=== PATIENT | male | born 1945 | race American Indian/Alaskan Native ===

== ENCOUNTER 2017-01-18 14:00 | Inpatient (IN) | payer MEDICARE ==
[2017-01-18 17:30] VITALS: BMI 31.4
[2017-01-18] MEDS ORDERED: Magnesium Hydroxide Susp 30 ml UD PO PRN (17:43)
[2017-01-18] MEDS ORDERED: Piperacillin/Tazobact 3.375 gm Inj IVPB SCH (17:45)
--- NOTE | 2017-01-18 18:24 | CP.PCM.HP ---
History of Present Illness - History of Present Illness History of Present Illness: Chief complaint: Right ankle ulcer HPI: 71-year-old male with past medical history of hypertension recently discharged from [facility] for right ankle ulcer which was debrided 6 days ago and now has a wound VAC in place. 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 He saw his main line station engineer, Dr. Lisa who initially attempted conservative management, however when the ulcer worsened they opted for surgical intervention. He is in TCU for further IV antibio Zosyn and Cipro, with Dr. Bai on consult. To note patient does not have diabetes. Hemoglobin A1c was 6.2 and his sugars were well controlled throughout his admission [facility]. Review of systems per HPI, all other systems reviewed and negative by me Past medical and surgical history: Hypertension, and the same type of ulcer in the left medial aspect of his ankle a few years ago which was resolved with a skin graft Family history denies Social history denies tobacco or IV drug abuse, however admits to occasional alcohol use Medications as below No known drug allergies Vital signs as documented. Gen: WDWN, cooperative, alert HEENT: NCAT, PERRL, EOMI, no erythema, exudates, gross hearing intact, no lesions Neck: Soft, supple, no lymphadenopathy, no JVD Heart: +S1S2, RRR, No MRG Lung: CTAB, No WRR Abd: soft, NT, ND, BSx4, no HSM, no masses Ext: warm, well perfused, pedal pulses intact +WOUND VAC R ANKLE Neuro: AAOx3, Strength equal bilaterally UE/LE Skin: Warm, Dry, no rash Psych: Normal mood, affect with appropriate range Labs ordered for the morning, labs at [facility] reviewed Allergies No Known Allergies Allergy (Verified 01/18/17 17:27) Height & Weight Height 6 ft 1 in Weight 238 lb Start Date/Time Active Medications 01/18/17 17:42 Acetaminophen [Tylenol 325mg tab] 650 mg PO Q6 PRN oxyCODONE/Acetaminophen [Percocet 5/325 mg Tab] 1 tab PO Q6H PRN 01/18/17 17:43 Docusate [Colace] 100 mg PO BID PRN Magnesium Hydroxide [Milk Of Magnesia] 30 ml PO HS PRN 07/25/17 17:45 Ciprofloxacin [Cipro] 500 mg PO BID Piperacillin/Tazobact [Zosyn] 3.375 gm IVPB Q8H 01/19/17 09:00 Enoxaparin [Lovenox] 40 mg SC DAILY Losartan [Cozaar] 100 mg PO DAILY amLODIPine [Norvasc] 10 mg PO DAILY hydrALAZINE [Apresoline] 50 mg PO DAILY 71-year-old male with past medical history of hypertension recently discharged from [facility] for right ankle ulcer which was debrided 6 days ago and now has a wound VAC in place. 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 He saw his main line station engineer, Dr. Lisa who initially attempted conservative management, however when the ulcer worsened they opted for surgical intervention. He is in TCU for further IV antibio Zosyn and Cipro, with Dr. Bai on consult. To note patient does not have diabetes. Hemoglobin A1c was 6.2 and his sugars were well controlled throughout his admission [facility]. Right ankle ulcer Patient is status post debridement and wound vac placement [address] Bai appreciated and followed Continue Cipro 500 mg PO BID Continue Zosyn monitor labs Percocet for pain control Awaiting Podiatry Resident for confirmation on who to consult for Podiatry attending, uncertain if Dr. Lisa comes to [facility] Hypertension stable continue amlodipine, cozaar, hydralazine DVT prophylaxis Lovenox Present on Admission - Present on Admission Any Indicators Present on Admission: No Past Patient History - Past Medical History & Family History Past Medical History?: No - Past Social History Smoking Status: Never Smoked - CARDIAC Hx Hypertension: Yes - INTEGUMENTARY Hx Dermatological Problems: Yes Other/Comment: wound left heel for debridement - MUSCULOSKELETAL/RHEUMATOLOGICAL Hx Falls: No - PSYCHIATRIC Hx Substance Use: No - SURGICAL HISTORY Hx Surgeries: Yes Other/Comment: removal mole from left forearm 20 years ago - ANESTHESIA Hx Anesthesia: Yes Hx Anesthesia Reactions: No Hx Malignant Hyperthermia: No Meds Allergies/Adverse Reactions: Allergies Allergy/AdvReac Type Severity Reaction Status Date / Time No Known Allergies Allergy Verified 01/18/17 17:27
[2017-01-18] MEDS ORDERED: Piperacill/Tazo 3.375gm in Dex 3.375 GM/50 ML BAG IVPB SCH ×2 (19:00→19:15)
[2017-01-18] MEDS: Piperacill/Tazo 3.375gm in Dex 3.375 GM/50 ML BAG IVPB SCH (20:45)
[2017-01-19 07:00] LABS: HEMOGLOBIN 14.4 g/dL (12.0-18.0); MEAN CELL VOLUME 83.6 fl (80.0-94.0); MEAN CORPUSCULAR HEMOGLOBIN 27.8 pg (27.0-31.0); MEAN CORPUSCULAR HGB CONC 33.2 g/dL (33.0-37.0); RBC 5.17 Mil/uL (4.40-5.90); RED CELL DISTRIBUTION WIDTH 14.1 % (11.5-14.5); WHITE BLOOD COUNT 7.4 K/uL (4.8-10.8)
[2017-01-19 07:18] LABS: CALCIUM 9.7 mg/dL (8.4-10.2)
--- NOTE | 2017-01-19 08:58 | CP.PCM.CON ---
History of Present Illness - History of Present Illness History of Present Illness: 71 year old male patient seen at bedside 7 days s/p right ankle wound debridement. Patient was transferred from [facility] and is known to podiatry service. Patient seen resting in bed comfortably, AAOx3 and NAD. Patient denies any acute events overnight. Patient reports continued mild throbbing pain to his right ankle at night due to the WoundVAC, well managed by pain medications. Patient denies N/V/F/D/C/SOB/calf pain. No other pedal complaints at this time. PMH: DM, HTN PSH: wound debridement R posterior ankle via Versajet, removal of mole from L forearm FH: unknown SH: unknown Meds: see med list All: NKDA Review of Systems - Review of Systems All systems: reviewed and no additional remarkable complaints except (as per HPI ) Past Patient History - Past Medical History & Family History Past Medical History?: No - Past Social History Smoking Status: Former Smoker - CARDIAC Hx Hypertension: Yes - INTEGUMENTARY Hx Dermatological Problems: Yes Other/Comment: wound left heel for debridement. R ankle ulcer - MUSCULOSKELETAL/RHEUMATOLOGICAL Hx Falls: No - PSYCHIATRIC Hx Substance Use: No - SURGICAL HISTORY Hx Surgeries: Yes Other/Comment: removal mole from left forearm 20 years ago - ANESTHESIA Hx Anesthesia: Yes Hx Anesthesia Reactions: No Hx Malignant Hyperthermia: No Meds Allergies/Adverse Reactions: Allergies Allergy/AdvReac Type Severity Reaction Status Date / Time No Known Allergies Allergy Verified 01/18/17 17:27 - Medications Medications: Current Medications Acetaminophen (Tylenol 325mg Tab) 650 mg PO Q6 PRN PRN Reason: Pain, Mild (1-3) Last Admin: 01/18/17 21:59 Dose: 650 mg Amlodipine Besylate (Norvasc) 10 mg PO DAILY [facility] Ciprofloxacin (Cipro) 500 mg PO BID [facility] Last Admin: 01/18/17 21:59 Dose: 500 mg Docusate Sodium (Colace) 100 mg PO BID PRN PRN Reason: Constipation Enoxaparin Sodium (Lovenox) 40 mg SC DAILY [facility] PRN Reason: Protocol Hydralazine HCl (Apresoline) 50 mg PO DAILY [facility] Piperacillin Sod/Tazobactam Sod (Zosyn 3.375 Gm Iv Premix) 3.375 gm in 50 mls @ 50 mls/hr IVPB Q8@0400,1200,2000 [facility] Last Admin: 01/18/17 20:45 Dose: 50 mls/hr Losartan Potassium (Cozaar) 100 mg PO DAILY [facility] Magnesium Hydroxide (Milk Of Magnesia) 30 ml PO HS PRN PRN Reason: If No Bowel Movement in 3 Days Oxycodone/Acetaminophen (Percocet 5/325 Mg Tab) 1 tab PO Q6H PRN PRN Reason: Pain, severe (8-10) Stop: 01/21/17 17:43 Physical Exam - Constitutional Appears: Well, Non-toxic, No Acute Distress - Extremities Exam Additional comments: RLE focused physical exam: Vasc: DP and PT pulses palpable 2/4. CFT <3 seconds to digits x5. TG WNL. Neuro: Gross sensation intact. Derm: WoundVAC appears clean, dry, and intact with no leakage. No open lesions noted. Ortho: No tenderness to palpation to RLE - Neurological Exam Neurological exam: Alert, Oriented x3 - Psychiatric Exam Psychiatric exam: Normal Affect, Normal Mood Results - Vital Signs Recent Vital Signs: Last Vital Signs Temp 97.7 F 01/19/17 08:12 Pulse 69 01/19/17 08:12 Resp 20 01/19/17 08:12 BP 170/98 H 01/19/17 08:12 Pulse Ox 98 01/19/17 08:12 - Labs Result Diagrams: 01/19/17 06:30 01/19/17 06:30 Labs: Laboratory Results - last 24 hr 01/19/17 01/19/17 06:30 06:30 WBC 7.4 RBC 5.17 Hgb 14.4 Hct 43.3 MCV 83.6 MCH 27.8 MCHC 33.2 RDW 14.1 Plt Count 242 Sodium 140 Potassium 4.4 Chloride 103 Carbon Dioxide 26 Anion Gap 15 BUN 20 Creatinine 1.6 H Est GFR ( Amer) 52 Est GFR (Non-Af Amer) 43 Random Glucose 102 Calcium 9.7 Assessment & Plan - Assessment and Plan (Free Text) Assessment: 71 y/o diabetic male seen at bedside 7 days s/p right ankle wound debridement ( DOS 01/12/17) Plan: Patient seen and evaluated at bedside. seen at bedside with attending Dr. Torres Charts, vitals, labs reviewed = afebrile, WBC WNL @ 7.4 Cont abx per medicine = Zosyn, Cipro Continue monitoring WoundVAC Plan to change WoundVAC every 3-4 days - next change this Tuesday, 01/21 Podiatry will continue to follow while in house.
--- NOTE | 2017-01-19 12:58 | CP.PCM.CON ---
History of Present Illness - History of Present Illness History of Present Illness: 71 year old male s/p right ankle wound debridement. c/s + staph MSSA PMH: DM, HTN PSH: wound debridement R posterior ankle via Versajet, removal of mole from L forearm FH: unknown SH: unknown Meds: see med list All: NKDA Review of Systems - Review of Systems All systems: reviewed and no additional remarkable complaints except - Constitutional Constitutional: absent: As Per HPI, Anorexia, Chills, Daytime Sleepiness, Excessive Sweating, Fatigue, Fever, Frequent Falls, Headache, Increased Appetite , Lethargy, Malaise, Night Sweats, Snoring, Sleep Apnea, Weight Gain, Weight Loss, Weakness, Other - EENT Eyes: absent: As Per HPI, Blind Spots, Blurred Vision, Change in Vision, Decreased Night Vision, Diplopia, Discharge, Dry Eye, Exophthalmos, Floaters, Irritation, Itchy Eyes, Loss of Peripheral Vision, Pain, Photophobia, Requires Corrective Lenses, Sees Flashes, Spots in Vision, Tunnel Vision, Other Visual Disturbances, Loss of Vision, Other Ears: absent: As Per HPI, Decreased Hearing, Ear Discharge, Ear Pain, Tinnitus, Abnormal Hearing, Disequilibrium, Dizziness, Other Nose/Mouth/Throat: absent: As Per HPI, Epistaxis, Nasal Congestion, Nasal Discharge, Nasal Obstruction, Nasal Trauma, Nose Pain, Post Nasal Drip, Sinus Pain, Sinus Pressure, Bleeding Gums, Change in Voice, Dental Pain, Dry Mouth, Dysphagia, Halitosis, Hoarsness, Lip Swelling, Mouth Lesions, Mouth Pain, Odynophagia, Sore Throat, Throat Swelling, Tongue Swelling, Facial Pain, Neck Pain, Neck Mass, Other - Cardiovascular Cardiovascular: absent: As Per HPI, Acrocyanosis, Chest Pain, Chest Pain at Rest , Chest Pain with Activity, Claudication, Diaphoresis, Dyspnea, Dyspnea on Exertion, Edema, Irregular Heart Rhythm, Pain Radiating to Arm/Neck/Jaw, Leg Edema, Leg Ulcers, Lightheadedness, Orthopnea, Palpitations, Paroxysmal Nocturnal Dyspnea, Pedal Edema, Radiating Pain, Rapid Heart Rate, Slow Heart Rate, Syncope, Other - Respiratory Respiratory: absent: As Per HPI, Cough, Dyspnea, Hemoptysis, Dyspnea on Exertion , Wheezing, Snoring, Stridor, Pain on Inspiration, Chest Congestion, Excessive Mucous Production, Change in Mucous Color, Pain with Coughing, Other - Gastrointestinal Gastrointestinal: absent: As Per HPI, Abdominal Pain, Belching, Bloating, Change in Bowel Habits, Change in Stool Character, Coffee Ground Emesis, Constipation, Cramping, Diarrhea, Dyspepsia, Dysphagia, Early Satiety, Excessive Flatus, Fecal Incontinence, Heartburn, Hematemesis, Hematochezia, Loose Stools, Melena, Nausea, Odynophagia, Temesmus, Vomiting, Other - Genitourinary Genitourinary: absent: As Per HPI, Change in Urinary Stream, Difficulty Urinating, Dysuria, Flank Pain, Hematuria, Pyuria, Nocturia, Urinary Incontinence, Urinary Frequency, Urinary Hesitance, Urinary Urgency, Voiding Freq/Small Amts, Freq UTI, Hx Renal/Bladder Calculi, Hx /Renal Surgery, Bladder Distension, Other - Musculoskeletal Musculoskeletal: absent: As Per HPI, Abnormal Gait, Arthralgias, Atrophy, Back Pain, Deformity, Joint Swelling, Limited Range of Motion, Loss of Height, Muscle Cramps, Muscle Weakness, Myalgias, Neck Pain, Numbness, Radiating Pain into Limb, Stiffness, Tingling, Other - Integumentary Integumentary: As Per HPI, Skin Pain, Wounds - Neurological Neurological: absent: As Per HPI, Abnormal Gait, Abnormal Hearing, Abnormal Movements, Abnormal Speech, Behavioral Changes, Burning Sensations, Confusion, Convulsions, Disequilibrium, Dizziness, Numbness, Focal Weakness, Frequent Falls , Headaches, Lack of Coordination, Loss of Vision, Memory Loss, Paresthesias, Radicular Pain, Restless Legs, Sensory Deficit, Syncope, Tingling, Tremor, Vertigo, Weakness, Other Visual Disturbances, Other - Psychiatric Psychiatric: absent: As Per HPI, Abnormal Sleep Pattern, Anhedonia, Anxiety, Auditory Hallucinations, Behavioral Changes, Change in Appetite, Change in Libido, Confusion, Depression, Difficulty Concentrating, Hallucinations, Homicidal Ideation, Hopelessness, Irritability, Memory Loss, Mood Swings, Panic Attacks, Paranoia, Suicidal Ideation, Visual Hallucinations, Tactile Hallucinations, Other - Endocrine Endocrine: absent: As Per HPI, Change in Body Appearance, Change in Libido, Cold Intolorance, Deepening of Voice, Excessive Sweating, Fatigue, Flushing, Heat Intolorance, Increase in Ring/Shoe/Hat Size, Palpitations, Polydipsia, Polyphagia, Polyuria, Other - Hematologic/Lymphatic Hematologic: absent: As Per HPI, Easy Bleeding, Easy Bruising, Lymphadenopathy, Other Past Patient History - Past Medical History & Family History Past Medical History?: No - Past Social History Smoking Status: Former Smoker - CARDIAC Hx Hypertension: Yes - INTEGUMENTARY Hx Dermatological Problems: Yes Other/Comment: wound left heel for debridement. R ankle ulcer - MUSCULOSKELETAL/RHEUMATOLOGICAL Hx Falls: No - PSYCHIATRIC Hx Substance Use: No - SURGICAL HISTORY Hx Surgeries: Yes Other/Comment: removal mole from left forearm 20 years ago - ANESTHESIA Hx Anesthesia: Yes Hx Anesthesia Reactions: No Hx Malignant Hyperthermia: No Meds Allergies/Adverse Reactions: Allergies Allergy/AdvReac Type Severity Reaction Status Date / Time No Known Allergies Allergy Verified 01/18/17 17:27 - Medications Medications: Current Medications Acetaminophen (Tylenol 325mg Tab) 650 mg PO Q6 PRN PRN Reason: Pain, Mild (1-3) Last Admin: 01/18/17 21:59 Dose: 650 mg Amlodipine Besylate (Norvasc) 10 mg PO DAILY [facility] Last Admin: 01/19/17 09:58 Dose: 10 mg Ciprofloxacin (Cipro) 500 mg PO BID [facility] Last Admin: 01/19/17 09:57 Dose: 500 mg Docusate Sodium (Colace) 100 mg PO BID PRN PRN Reason: Constipation Enoxaparin Sodium (Lovenox) 40 mg SC DAILY [facility] PRN Reason: Protocol Hydralazine HCl (Apresoline) 50 mg PO DAILY [facility] Last Admin: 01/19/17 09:57 Dose: 50 mg Piperacillin Sod/Tazobactam Sod (Zosyn 3.375 Gm Iv Premix) 3.375 gm in 50 mls @ 50 mls/hr IVPB Q8@0400,1200,2000 [facility] Last Admin: 01/18/17 20:45 Dose: 50 mls/hr Losartan Potassium (Cozaar) 100 mg PO DAILY [facility] Last Admin: 01/19/17 09:58 Dose: 100 mg Magnesium Hydroxide (Milk Of Magnesia) 30 ml PO HS PRN PRN Reason: If No Bowel Movement in 3 Days Oxycodone/Acetaminophen (Percocet 5/325 Mg Tab) 1 tab PO Q6H PRN PRN Reason: Pain, severe (8-10) Stop: 01/21/17 17:43 Physical Exam - Constitutional Appears: Non-toxic, Chronically Ill - Head Exam Head Exam: NORMOCEPHALIC - Eye Exam Eye Exam: PERRL. absent: Scleral icterus - ENT Exam ENT Exam: Mucous Membranes Dry, Normal External Ear Exam - Neck Exam Neck exam: Negative for: Lymphadenopathy - Respiratory Exam Respiratory Exam: Decreased Breath Sounds - Cardiovascular Exam Cardiovascular Exam: REGULAR RHYTHM - GI/Abdominal Exam GI & Abdominal Exam: Diminished Bowel Sounds, Soft. absent: Tenderness - Rectal Exam Rectal Exam: Deferred - Exam Exam: NORMAL INSPECTION - Extremities Exam Extremities exam: Positive for: pedal edema, tenderness, pedal pulses present. Negative for: calf tenderness - Back Exam Back exam: absent: CVA tenderness (L), CVA tenderness (R) - Neurological Exam Neurological exam: Alert, CN II-XII Intact, Oriented x3, Reflexes Normal - Psychiatric Exam Psychiatric exam: Normal Mood Results - Vital Signs Recent Vital Signs: Last Vital Signs Temp 97.7 F 01/19/17 08:12 Pulse 69 01/19/17 09:58 Resp 20 01/19/17 08:12 BP 170/98 H 01/19/17 09:58 Pulse Ox 98 01/19/17 08:12 - Labs Result Diagrams: 01/19/17 06:30 01/19/17 06:30 Labs: Laboratory Results - last 24 hr 01/19/17 01/19/17 06:30 06:30 WBC 7.4 RBC 5.17 Hgb 14.4 Hct 43.3 MCV 83.6 MCH 27.8 MCHC 33.2 RDW 14.1 Plt Count 242 Sodium 140 Potassium 4.4 Chloride 103 Carbon Dioxide 26 Anion Gap 15 BUN 20 Creatinine 1.6 H Est GFR ( Amer) 52 Est GFR (Non-Af Amer) 43 Random Glucose 102 Calcium 9.7 Assessment & Plan - Assessment and Plan (Free Text) Assessment: s/p i and d right ankle ulcer cont iv rx and wound care
[2017-01-19] MEDS: Enoxaparin 40 mg Syringe SC SCH (13:30)
[2017-01-19] MEDS: Piperacill/Tazo 3.375gm in Dex 3.375 GM/50 ML BAG IVPB SCH ×2 (14:18→21:05)
[2017-01-19] MEDS: Oxycodone/Acetaminophen 5/325 mg Tab PO PRN (21:05)
[2017-01-20] MEDS: Piperacill/Tazo 3.375gm in Dex 3.375 GM/50 ML BAG IVPB SCH ×3 (04:37→21:05)
[2017-01-20] MEDS: Enoxaparin 40 mg Syringe SC SCH (08:23)
--- NOTE | 2017-01-20 09:25 | CP.PCM.PN ---
Subjective - Date & Time of Evaluation Date of Evaluation: 01/20/17 Time of Evaluation: 08:30 - Subjective Subjective: 71 year old male patient seen at bedside 8 days s/p right ankle wound debridement. Patient seen resting in bed comfortably, AAOx3 and NAD. Patient denies any acute events overnight. Patient reports continued mild throbbing pain to his right ankle at night due to the WoundVAC, well managed by Tylenol. Patient denies N/V/F/D/C/SOB/calf pain. No other pedal complaints at this time. Objective - Vital Signs/Intake and Output Vital Signs (last 24 hours): Temp Pulse Resp BP Pulse Ox 98.2 F 70 20 150/92 H 98 01/20/17 08:52 01/20/17 08:52 01/20/17 08:52 01/20/17 08:52 01/20/17 08:52 - Medications Medications: Current Medications Acetaminophen (Tylenol 325mg Tab) 650 mg PO Q6 PRN PRN Reason: Pain, Mild (1-3) Last Admin: 01/18/17 21:59 Dose: 650 mg Amlodipine Besylate (Norvasc) 10 mg PO DAILY [facility] Last Admin: 01/20/17 08:23 Dose: 10 mg Ciprofloxacin (Cipro) 500 mg PO BID [facility] Last Admin: 01/20/17 08:18 Dose: 500 mg Docusate Sodium (Colace) 100 mg PO BID PRN PRN Reason: Constipation Last Admin: 01/20/17 08:18 Dose: 100 mg Enoxaparin Sodium (Lovenox) 40 mg SC DAILY [facility] PRN Reason: Protocol Last Admin: 01/20/17 08:23 Dose: 40 mg Hydralazine HCl (Apresoline) 50 mg PO DAILY [facility] Last Admin: 01/20/17 08:24 Dose: 50 mg Piperacillin Sod/Tazobactam Sod (Zosyn 3.375 Gm Iv Premix) 3.375 gm in 50 mls @ 50 mls/hr IVPB Q8@0400,1200,2000 [facility] Last Admin: 01/20/17 04:37 Dose: 50 mls/hr Losartan Potassium (Cozaar) 100 mg PO DAILY [facility] Last Admin: 01/20/17 08:27 Dose: 100 mg Magnesium Hydroxide (Milk Of Magnesia) 30 ml PO HS PRN PRN Reason: If No Bowel Movement in 3 Days Oxycodone/Acetaminophen (Percocet 5/325 Mg Tab) 1 tab PO Q6H PRN PRN Reason: Pain, severe (8-10) Stop: 01/21/17 17:43 Last Admin: 01/19/17 21:05 Dose: 1 tab - Labs Labs: 01/19/17 06:30 01/19/17 06:30 - Constitutional Appears: Well, Non-toxic, No Acute Distress - Extremities Exam Additional comments: RLE focused physical exam: Vasc: DP and PT pulses palpable 2/4. CFT <3 seconds to digits x5. TG WNL. Neuro: Gross sensation intact. Derm: WoundVAC appears clean, dry, and intact with no leakage. No open lesions noted. Ortho: No tenderness to palpation to RLE - Neurological Exam Neurological Exam: Alert, Awake, Oriented x3 - Psychiatric Exam Psychiatric exam: Normal Affect, Normal Mood Assessment and Plan - Assessment and Plan (Free Text) Assessment: 71 y/o diabetic male seen at bedside 8 days s/p right ankle wound debridement ( DOS 01/12/17) Plan: Patient seen and evaluated at bedside. seen at bedside with attending Dr. Torres Charts, vitals, labs reviewed = afebrile Cont abx per ID = Zosyn, Cipro Continue monitoring WoundVAC Plan to change WoundVAC tomorrow, Tuesday, 01/21 Podiatry will continue to follow while in house.
[2017-01-20] MEDS: Oxycodone/Acetaminophen 5/325 mg Tab PO PRN ×2 (11:29→20:03)
--- NOTE | 2017-01-20 13:46 | CP.PCM.PN ---
Subjective - Date & Time of Evaluation Date of Evaluation: 01/20/17 Time of Evaluation: 13:45 - Subjective Subjective: Patient doing well, tolerating PT +wound vac cont abx HD stable NAD ID/PODIATRY consults appreciated Temp Pulse Resp BP Pulse Ox 98.2 F 70 20 150/92 H 98 01/20/17 08:52 01/20/17 08:52 01/20/17 08:52 01/20/17 08:52 01/20/17 08:52 Gen: WDWN, cooperative, alert HEENT: NCAT, PERRL, EOMI, no erythema, exudates, gross hearing intact, no lesions Neck: Soft, supple, no lymphadenopathy, no JVD Heart: +S1S2, RRR, No MRG Lung: CTAB, No WRR Abd: soft, NT, ND, BSx4, no HSM, no masses Ext: warm, well perfused, pedal pulses intact +WOUND VAC R ANKLE Neuro: AAOx3, Strength equal bilaterally UE/LE Skin: Warm, Dry, no rash Psych: Normal mood, affect with appropriate range 01/19/17 06:30 01/19/17 06:30 Active Medications 01/18/17 17:42 Acetaminophen [Tylenol 325mg tab] 650 mg PO Q6 PRN oxyCODONE/Acetaminophen [Percocet 5/325 mg Tab] 1 tab PO Q6H PRN 01/18/17 17:43 Docusate [Colace] 100 mg PO BID PRN Magnesium Hydroxide [Milk Of Magnesia] 30 ml PO HS PRN 01/18/17 17:45 Ciprofloxacin [Cipro] 500 mg PO BID 01/18/17 20:00 Piperacill/Tazo 3.375gm in Dex [Zosyn 3.375 Gm IV Premix] 3.375 gm in 50 ml IVPB Q8@0400,1200,199901/19/17 09:00 Enoxaparin [Lovenox] 40 mg SC DAILY Losartan [Cozaar] 100 mg PO DAILY amLODIPine [Norvasc] 10 mg PO DAILY hydrALAZINE [Apresoline] 50 mg PO DAILY 71-year-old male with past medical history of hypertension recently discharged from [facility] for right ankle ulcer which was debrided 6 days ago and now has a wound VAC in place. 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 He saw his paper maker, Dr. Lisa who initially attempted conservative management, however when the ulcer worsened they opted for surgical intervention. He is in TCU for further IV antibio Zosyn and Cipro, with Dr. Bai on consult. To note patient does not have diabetes. Hemoglobin A1c was 6.2 and his sugars were well controlled throughout his admission [facility]. Right ankle ulcer Patient is status post debridement and wound vac placement [address] Bai appreciated and followed Continue Cipro 500 mg PO BID Continue Zosyn monitor labs Percocet for pain control Awaiting Podiatry Resident for confirmation on who to consult for Podiatry attending, uncertain if Dr. Lisa comes to [facility] Hypertension stable continue amlodipine, cozaar, hydralazine DVT prophylaxis Lovenox Objective - Vital Signs/Intake and Output Vital Signs (last 24 hours): Temp Pulse Resp BP Pulse Ox 98.2 F 70 20 150/92 H 98 01/20/17 08:52 01/20/17 08:52 01/20/17 08:52 01/20/17 08:52 01/20/17 08:52 - Medications Medications: Current Medications Acetaminophen (Tylenol 325mg Tab) 650 mg PO Q6 PRN PRN Reason: Pain, Mild (1-3) Last Admin: 01/18/17 21:59 Dose: 650 mg Amlodipine Besylate (Norvasc) 10 mg PO DAILY [facility] Last Admin: 01/20/17 08:23 Dose: 10 mg Ciprofloxacin (Cipro) 500 mg PO BID [facility] Last Admin: 01/20/17 08:18 Dose: 500 mg Docusate Sodium (Colace) 100 mg PO BID PRN PRN Reason: Constipation Last Admin: 01/20/17 08:18 Dose: 100 mg Enoxaparin Sodium (Lovenox) 40 mg SC DAILY [facility] PRN Reason: Protocol Last Admin: 01/20/17 08:23 Dose: 40 mg Hydralazine HCl (Apresoline) 50 mg PO DAILY [facility] Last Admin: 01/20/17 08:24 Dose: 50 mg Piperacillin Sod/Tazobactam Sod (Zosyn 3.375 Gm Iv Premix) 3.375 gm in 50 mls @ 50 mls/hr IVPB Q8@0400,1200,2000 [facility] Last Admin: 01/20/17 04:37 Dose: 50 mls/hr Losartan Potassium (Cozaar) 100 mg PO DAILY [facility] Last Admin: 01/20/17 08:27 Dose: 100 mg Magnesium Hydroxide (Milk Of Magnesia) 30 ml PO HS PRN PRN Reason: If No Bowel Movement in 3 Days Oxycodone/Acetaminophen (Percocet 5/325 Mg Tab) 1 tab PO Q6H PRN PRN Reason: Pain, severe (8-10) Stop: 01/21/17 17:43 Last Admin: 01/20/17 11:29 Dose: 1 tab - Labs Labs: 01/19/17 06:30 01/19/17 06:30
[2017-01-21] MEDS: Piperacill/Tazo 3.375gm in Dex 3.375 GM/50 ML BAG IVPB SCH ×3 (05:00→22:04)
--- NOTE | 2017-01-21 07:39 | CP.PCM.PN ---
Subjective - Date & Time of Evaluation Date of Evaluation: 01/21/17 Time of Evaluation: 07:36 - Subjective Subjective: 71 year old male patient seen at bedside 9 days s/p right ankle wound debridement. Patient seen resting in bed comfortably, AAOx3 and NAD. Patient denies any acute events overnight. Patient states that the WoundVAC did not beep /leak once adjusted by resident yesterday evening. Patient reports continued mild throbbing pain to his right ankle at night due to the WoundVAC, well managed by Tylenol. Patient is aware he will have his WoundVAC changed today. Patient denies N/V/F/D/C/SOB/calf pain. No other pedal complaints at this time. Objective - Vital Signs/Intake and Output Vital Signs (last 24 hours): Temp Pulse Resp BP Pulse Ox 99.1 F 88 20 169/100 H 97 01/20/17 20:14 01/20/17 20:14 01/20/17 20:14 01/20/17 20:14 01/20/17 20:14 - Medications Medications: Current Medications Acetaminophen (Tylenol 325mg Tab) 650 mg PO Q6 PRN PRN Reason: Pain, Mild (1-3) Last Admin: 01/18/17 21:59 Dose: 650 mg Amlodipine Besylate (Norvasc) 10 mg PO DAILY [facility] Last Admin: 01/20/17 08:23 Dose: 10 mg Ciprofloxacin (Cipro) 500 mg PO BID [facility] Last Admin: 01/20/17 17:35 Dose: 500 mg Docusate Sodium (Colace) 100 mg PO BID PRN PRN Reason: Constipation Last Admin: 01/20/17 17:35 Dose: 100 mg Enoxaparin Sodium (Lovenox) 40 mg SC DAILY [facility] PRN Reason: Protocol Last Admin: 01/20/17 08:23 Dose: 40 mg Hydralazine HCl (Apresoline) 50 mg PO DAILY [facility] Last Admin: 01/20/17 08:24 Dose: 50 mg Piperacillin Sod/Tazobactam Sod (Zosyn 3.375 Gm Iv Premix) 3.375 gm in 50 mls @ 50 mls/hr IVPB Q8@0600,1400,2200 [facility] Last Admin: 01/21/17 05:00 Dose: 50 mls/hr Losartan Potassium (Cozaar) 100 mg PO DAILY [facility] Last Admin: 01/20/17 08:27 Dose: 100 mg Magnesium Hydroxide (Milk Of Magnesia) 30 ml PO HS PRN PRN Reason: If No Bowel Movement in 3 Days Oxycodone/Acetaminophen (Percocet 5/325 Mg Tab) 1 tab PO Q6H PRN PRN Reason: Pain, severe (8-10) Stop: 01/21/17 17:43 Last Admin: 01/20/17 20:03 Dose: 1 tab - Labs Labs: 01/19/17 06:30 01/19/17 06:30 - Constitutional Appears: Well, Non-toxic, No Acute Distress - Extremities Exam Additional comments: RLE focused physical exam: Vasc: DP and PT pulses palpable 2/4. CFT <3 seconds to digits x5. TG cool to cool. Neuro: Gross sensation intact. Derm: posterolateral right ankle wound site measuring 5.5cm x 3.6cm x superficial with granular base, exposed achilles tendon, no purulence, no malodor, no drainage, no ascending cellulitis, no probe to bone Ortho: No tenderness to palpation to RLE - Neurological Exam Neurological Exam: Alert, Awake, Oriented x3 - Psychiatric Exam Psychiatric exam: Normal Affect, Normal Mood Assessment and Plan - Assessment and Plan (Free Text) Assessment: 71 y/o diabetic male seen at bedside 9 days s/p right ankle wound debridement Plan: Patient seen and evaluated at bedside. seen at bedside with attending Dr. Torres Charts, vitals, labs reviewed = afebrile Cont abx per ID = Zosyn, Cipro Wound cleansed with NSS and mechanically debrided using 4x4. WoundVAC changed. Continue monitoring WoundVAC Podiatry will continue to follow while in house.
[2017-01-21] MEDS: Enoxaparin 40 mg Syringe SC SCH (08:05)
[2017-01-21] MEDS: Oxycodone/Acetaminophen 5/325 mg Tab PO PRN (09:38)
--- NOTE | 2017-01-21 16:17 | CP.PCM.PN ---
Subjective - Date & Time of Evaluation Date of Evaluation: 01/21/17 Time of Evaluation: 08:00 - Subjective Subjective: denies fever wound vac in place iv rx renewed Objective - Vital Signs/Intake and Output Vital Signs (last 24 hours): Temp Pulse Resp BP Pulse Ox 98.1 F 92 H 20 155/90 H 99 01/21/17 08:25 01/21/17 08:25 01/21/17 08:25 01/21/17 08:25 01/21/17 08:25 - Medications Medications: Current Medications Acetaminophen (Tylenol 325mg Tab) 650 mg PO Q6 PRN PRN Reason: Pain, Mild (1-3) Last Admin: 01/18/17 21:59 Dose: 650 mg Amlodipine Besylate (Norvasc) 10 mg PO DAILY [facility] Last Admin: 01/21/17 08:04 Dose: 10 mg Ciprofloxacin (Cipro) 500 mg PO BID [facility] Last Admin: 01/21/17 08:05 Dose: 500 mg Docusate Sodium (Colace) 100 mg PO BID PRN PRN Reason: Constipation Last Admin: 01/21/17 08:04 Dose: 100 mg Enoxaparin Sodium (Lovenox) 40 mg SC DAILY [facility] PRN Reason: Protocol Last Admin: 01/21/17 08:05 Dose: 40 mg Hydralazine HCl (Apresoline) 50 mg PO DAILY [facility] Last Admin: 01/21/17 08:04 Dose: 50 mg Piperacillin Sod/Tazobactam Sod (Zosyn 3.375 Gm Iv Premix) 3.375 gm in 50 mls @ 50 mls/hr IVPB Q8@0600,1400,2200 [facility] Last Admin: 01/21/17 13:47 Dose: 50 mls/hr Losartan Potassium (Cozaar) 100 mg PO DAILY [facility] Last Admin: 01/21/17 08:05 Dose: 100 mg Magnesium Hydroxide (Milk Of Magnesia) 30 ml PO HS PRN PRN Reason: If No Bowel Movement in 3 Days Metoprolol Tartrate (Lopressor) 25 mg PO Q12 [facility] Oxycodone/Acetaminophen (Percocet 5/325 Mg Tab) 1 tab PO Q6H PRN PRN Reason: Pain, severe (8-10) Stop: 01/21/17 17:43 Last Admin: 01/21/17 09:38 Dose: 1 tab - Labs Labs: 01/19/17 06:30 01/19/17 06:30 - Constitutional Appears: Non-toxic - Head Exam Head Exam: NORMOCEPHALIC - Eye Exam Eye Exam: PERRL. absent: Scleral icterus - ENT Exam ENT Exam: Mucous Membranes Dry - Neck Exam Neck Exam: absent: Lymphadenopathy - Respiratory Exam Respiratory Exam: Decreased Breath Sounds - Cardiovascular Exam Cardiovascular Exam: REGULAR RHYTHM - GI/Abdominal Exam GI & Abdominal Exam: Distended Assessment and Plan - Assessment and Plan (Free Text) Plan: cont rx for necrotizing cellulitis MSSA
[2017-01-22] MEDS: Piperacill/Tazo 3.375gm in Dex 3.375 GM/50 ML BAG IVPB SCH ×3 (06:16→21:26)
[2017-01-22] MEDS: Enoxaparin 40 mg Syringe SC SCH (08:17)
--- NOTE | 2017-01-22 12:24 | CP.PCM.PN ---
Subjective - Date & Time of Evaluation Date of Evaluation: 01/22/17 Time of Evaluation: 12:24 - Subjective Subjective: 71 year old male patient seen at bedside 10 days s/p right lateral ankle wound debridement. Patient seen resting in bed comfortably, AAOx3 and NAD. Patient denies any acute events overnight. Patient states that the wound vac has remained in place and he does not report any changes. Patient states that the Tylenol is helping to control the pain that comes and goes in his right ankle. Patient states he has been told he will be discharged on Tuesday or Tuesday and is unsure if he will be leaving with or without the wound vac on. Patient denies N/V/F/D/C/SOB/calf pain. No other pedal complaints at this time. Objective - Vital Signs/Intake and Output Vital Signs (last 24 hours): Temp Pulse Resp BP Pulse Ox 98.2 F 79 20 160/104 H 97 01/22/17 08:16 01/22/17 08:25 01/22/17 08:16 01/22/17 08:25 01/22/17 08:16 - Medications Medications: Current Medications Acetaminophen (Tylenol 325mg Tab) 650 mg PO Q6 PRN PRN Reason: Pain, Mild (1-3) Last Admin: 01/22/17 11:20 Dose: 650 mg Amlodipine Besylate (Norvasc) 10 mg PO DAILY [facility] Last Admin: 01/22/17 08:18 Dose: 10 mg Ciprofloxacin (Cipro) 500 mg PO BID [facility] Last Admin: 01/22/17 08:17 Dose: 500 mg Docusate Sodium (Colace) 100 mg PO BID PRN PRN Reason: Constipation Last Admin: 01/21/17 08:04 Dose: 100 mg Enoxaparin Sodium (Lovenox) 40 mg SC DAILY [facility] PRN Reason: Protocol Last Admin: 01/22/17 08:17 Dose: 40 mg Hydralazine HCl (Apresoline) 50 mg PO DAILY [facility] Last Admin: 01/22/17 08:25 Dose: 50 mg Piperacillin Sod/Tazobactam Sod (Zosyn 3.375 Gm Iv Premix) 3.375 gm in 50 mls @ 50 mls/hr IVPB Q8@0600,1400,2200 [facility] Last Admin: 01/22/17 06:16 Dose: 50 mls/hr Losartan Potassium (Cozaar) 100 mg PO DAILY [facility] Last Admin: 01/22/17 08:19 Dose: 100 mg Magnesium Hydroxide (Milk Of Magnesia) 30 ml PO HS PRN PRN Reason: If No Bowel Movement in 3 Days Metoprolol Tartrate (Lopressor) 25 mg PO Q12 [facility] Last Admin: 01/22/17 08:18 Dose: 25 mg - Labs Labs: 01/19/17 06:30 01/19/17 06:30 - Constitutional Appears: Well, Non-toxic, No Acute Distress - Extremities Exam Additional comments: RLE focused physical exam: Vasc: DP and PT pulses palpable 2/4. CFT <3 seconds to digits x5. TG cool to cool. Neuro: Gross sensation intact. Derm: posterolateral right ankle wound site with wound vac intact, leak check indicates no leaks at this time to vac. Adherent dressing intact to RLE. Ortho: No tenderness to palpation to RLE - Neurological Exam Neurological Exam: Alert, Awake, Oriented x3 - Psychiatric Exam Psychiatric exam: Normal Affect, Normal Mood Assessment and Plan - Assessment and Plan (Free Text) Assessment: 71 y/o diabetic male seen at bedside 10 days s/p right ankle wound debridement ( DOS 01/12/17) Plan: Patient seen and evaluated at bedside Discussed plan in detail with attending Dr. Zelaya Charts, vitals, labs reviewed = afebrile, WBC 7.4 as of 01/19 Cont abx per ID = Meño Schwartz Podiatry will continue to monitor wound vac and change again Wednesday 01/24 Podiatry will continue to follow while in house
[2017-01-22] MEDS ORDERED: Oxycodone/Acetaminophen 5/325 mg Tab PO PRN (21:23)
[2017-01-23] MEDS: Piperacill/Tazo 3.375gm in Dex 3.375 GM/50 ML BAG IVPB SCH ×3 (05:06→20:59)
[2017-01-23 08:37] VITALS: RESP 20
[2017-01-23] MEDS: Enoxaparin 40 mg Syringe SC SCH (08:54)
--- NOTE | 2017-01-23 11:33 | CP.PCM.PN ---
Subjective - Date & Time of Evaluation Date of Evaluation: 01/23/17 Time of Evaluation: 11:30 - Subjective Subjective: 71 year old male patient seen at bedside 11 days s/p right lateral ankle wound debridement. Patient seen resting in bed comfortably, AAOx3 and NAD. Patient denies any acute events overnight. Patient states he has been told he will be discharged on Tuesday or Tuesday but has not received any more information than that. Patient has kept his dressing and wound vac clean, dry and intact. Patient denies N/V/F/D/C/SOB/calf pain. No other pedal complaints at this time. Objective - Vital Signs/Intake and Output Vital Signs (last 24 hours): Temp Pulse Resp BP Pulse Ox 98.4 F 89 20 180/107 H 97 01/23/17 08:37 01/23/17 08:57 01/23/17 08:37 01/23/17 08:57 01/23/17 08:37 - Medications Medications: Current Medications Acetaminophen (Tylenol 325mg Tab) 650 mg PO Q6 PRN PRN Reason: Pain, Mild (1-3) Last Admin: 01/22/17 11:20 Dose: 650 mg Amlodipine Besylate (Norvasc) 10 mg PO DAILY [facility] Last Admin: 01/23/17 08:57 Dose: 10 mg Ciprofloxacin (Cipro) 500 mg PO BID [facility] Last Admin: 01/23/17 08:56 Dose: 500 mg Docusate Sodium (Colace) 100 mg PO BID PRN PRN Reason: Constipation Last Admin: 01/21/17 08:04 Dose: 100 mg Enoxaparin Sodium (Lovenox) 40 mg SC DAILY [facility] PRN Reason: Protocol Last Admin: 01/23/17 08:54 Dose: 40 mg Hydralazine HCl (Apresoline) 50 mg PO DAILY [facility] Last Admin: 01/23/17 08:55 Dose: 50 mg Piperacillin Sod/Tazobactam Sod (Zosyn 3.375 Gm Iv Premix) 3.375 gm in 50 mls @ 50 mls/hr IVPB Q8@0600,1400,2200 [facility] Last Admin: 01/23/17 05:06 Dose: 50 mls/hr Losartan Potassium (Cozaar) 100 mg PO DAILY [facility] Last Admin: 01/23/17 08:55 Dose: 100 mg Magnesium Hydroxide (Milk Of Magnesia) 30 ml PO HS PRN PRN Reason: If No Bowel Movement in 3 Days Metoprolol Tartrate (Lopressor) 25 mg PO Q12 [facility] Last Admin: 01/23/17 08:56 Dose: 25 mg Oxycodone/Acetaminophen (Percocet 5/325 Mg Tab) 1 tab PO Q6 PRN PRN Reason: PAIN 4-10 Stop: 01/25/17 21:24 Last Admin: 01/22/17 22:13 Dose: 1 tab - Labs Labs: 01/19/17 06:30 01/19/17 06:30 - Constitutional Appears: Well, Non-toxic, No Acute Distress - Extremities Exam Additional comments: RLE focused physical exam: Vasc: DP and PT pulses palpable 2/4. CFT <3 seconds to digits x5. TG cool to cool. Neuro: Gross sensation intact. Derm: posterolateral right ankle wound site with wound vac intact, leak check indicates no leaks at this time to vac. Dressing intact to RLE. Ortho: No tenderness to palpation to RLE - Neurological Exam Neurological Exam: Alert, Awake, Oriented x3 - Psychiatric Exam Psychiatric exam: Normal Affect, Normal Mood Assessment and Plan - Assessment and Plan (Free Text) Assessment: 71 y/o diabetic male seen at bedside 11 days s/p right ankle wound debridement ( DOS 01/12/17) Plan: Patient seen and evaluated at bedside Discussed plan in detail with attending Dr. Zelaya Charts, vitals, labs reviewed = afebrile, WBC 7.4 as of 01/19 Cont abx per ID = Zosyn, Cipro Podiatry will continue to monitor wound vac and change again Wednesday 01/24 Podiatry will continue to follow while in house
[2017-01-24] MEDS: Piperacill/Tazo 3.375gm in Dex 3.375 GM/50 ML BAG IVPB SCH ×3 (05:44→21:20)
--- NOTE | 2017-01-24 05:49 | CP.PCM.PN ---
Subjective - Date & Time of Evaluation Date of Evaluation: 01/24/17 Time of Evaluation: 05:49 - Subjective Subjective: 71 year old male patient seen at bedside 12 days s/p right lateral ankle wound debridement. Patient seen resting in bed comfortably, AAOx3 and NAD. Patient denies any acute events overnight. Patient reports continued tightness and soreness to the woundVAC. Patient has kept his dressing and wound vac clean, dry and intact. Patient denies N/V/F/D/C/SOB/calf pain. No other pedal complaints at this time. Objective - Vital Signs/Intake and Output Vital Signs (last 24 hours): Temp Pulse Resp BP Pulse Ox 97.9 F 81 20 149/100 H 95 01/23/17 20:11 01/23/17 20:58 01/23/17 20:11 01/23/17 20:58 01/23/17 20:11 - Medications Medications: Current Medications Acetaminophen (Tylenol 325mg Tab) 650 mg PO Q6 PRN PRN Reason: Pain, Mild (1-3) Last Admin: 01/23/17 21:05 Dose: 650 mg Amlodipine Besylate (Norvasc) 10 mg PO DAILY [facility] Last Admin: 01/23/17 08:57 Dose: 10 mg Ciprofloxacin (Cipro) 500 mg PO BID [facility] Last Admin: 01/23/17 17:40 Dose: 500 mg Docusate Sodium (Colace) 100 mg PO BID PRN PRN Reason: Constipation Last Admin: 01/21/17 08:04 Dose: 100 mg Enoxaparin Sodium (Lovenox) 40 mg SC DAILY [facility] PRN Reason: Protocol Last Admin: 01/23/17 08:54 Dose: 40 mg Hydrochlorothiazide (Hydrodiuril) 25 mg PO DAILY [facility] Last Admin: 01/23/17 13:27 Dose: 25 mg Piperacillin Sod/Tazobactam Sod (Zosyn 3.375 Gm Iv Premix) 3.375 gm in 50 mls @ 50 mls/hr IVPB Q8@0600,1400,2200 [facility] Last Admin: 01/24/17 05:44 Dose: 50 mls/hr Losartan Potassium (Cozaar) 100 mg PO DAILY [facility] Last Admin: 01/23/17 08:55 Dose: 100 mg Magnesium Hydroxide (Milk Of Magnesia) 30 ml PO HS PRN PRN Reason: If No Bowel Movement in 3 Days Metoprolol Tartrate (Lopressor) 25 mg PO Q12 [facility] Last Admin: 01/23/17 20:58 Dose: 25 mg Oxycodone/Acetaminophen (Percocet 5/325 Mg Tab) 1 tab PO Q6 PRN PRN Reason: PAIN 4-10 Stop: 01/25/17 21:24 Last Admin: 01/22/17 22:13 Dose: 1 tab - Labs Labs: 01/19/17 06:30 01/19/17 06:30 - Constitutional Appears: Well, Non-toxic, No Acute Distress - Extremities Exam Additional comments: RLE focused physical exam: Vasc: DP and PT pulses palpable 2/4. CFT <3 seconds to digits x5. TG warm to cool. Neuro: Gross sensation intact. Derm: posterolateral right ankle wound site with wound vac intact, leak check indicates no leaks at this time to vac. Dressing intact to RLE. Ortho: No tenderness to palpation to RLE - Neurological Exam Neurological Exam: Alert, Awake, Oriented x3 - Psychiatric Exam Psychiatric exam: Normal Affect, Normal Mood Assessment and Plan - Assessment and Plan (Free Text) Assessment: 71 y/o diabetic male seen at bedside 12 days s/p right ankle wound debridement ( DOS 01/12/17) Plan: Patient seen and evaluated at bedside Discussed plan in detail with attending Dr. Torres Charts, vitals, labs reviewed = afebrile Cont abx per ID = Zosyn, Cipro Continue paint mgmt per medicine = Tylenol, Percocet F/U discharge recommendations Podiatry will continue to monitor wound vac and change again tomorrow, Tuesday Podiatry will continue to follow while in house
[2017-01-24] MEDS: Enoxaparin 40 mg Syringe SC SCH (08:05)
[2017-01-25] MEDS: Piperacill/Tazo 3.375gm in Dex 3.375 GM/50 ML BAG IVPB SCH ×3 (06:18→21:45)
--- NOTE | 2017-01-25 08:25 | CP.PCM.PN ---
Subjective - Date & Time of Evaluation Date of Evaluation: 01/25/17 Time of Evaluation: 08:00 - Subjective Subjective: Patient is a 71 year old male who was seen and evaluated at bedside for 13 days s/p right lateral ankle wound debridement. Patient is seen resting comfortably in bed, AAO x3, and in NAD. Patient reports throbbing pain, more with movement compared to resting. He denies n/v/sob/cp/f or chills. Patient's wound vac and dressing was c/d/i and on when seen. Reports no other complaints at this time. Objective - Vital Signs/Intake and Output Vital Signs (last 24 hours): Temp Pulse Resp BP Pulse Ox 97.9 F 81 20 152/90 H 100 01/25/17 07:58 01/25/17 07:58 01/25/17 07:58 01/25/17 07:58 01/25/17 07:58 - Medications Medications: Current Medications Acetaminophen (Tylenol 325mg Tab) 650 mg PO Q6 PRN PRN Reason: Pain, Mild (1-3) Last Admin: 01/24/17 22:52 Dose: 650 mg Amlodipine Besylate (Norvasc) 10 mg PO DAILY [facility] Last Admin: 01/24/17 08:05 Dose: 10 mg Docusate Sodium (Colace) 100 mg PO BID PRN PRN Reason: Constipation Last Admin: 01/21/17 08:04 Dose: 100 mg Hydrochlorothiazide (Hydrodiuril) 25 mg PO DAILY [facility] Last Admin: 01/24/17 08:05 Dose: 25 mg Piperacillin Sod/Tazobactam Sod (Zosyn 3.375 Gm Iv Premix) 3.375 gm in 50 mls @ 50 mls/hr IVPB Q8@0600,1400,2200 [facility] Last Admin: 01/25/17 06:18 Dose: 50 mls/hr Losartan Potassium (Cozaar) 100 mg PO DAILY [facility] Last Admin: 01/24/17 08:04 Dose: 100 mg Magnesium Hydroxide (Milk Of Magnesia) 30 ml PO HS PRN PRN Reason: If No Bowel Movement in 3 Days Metoprolol Tartrate (Lopressor) 25 mg PO Q12 [facility] Last Admin: 01/24/17 21:21 Dose: 25 mg Oxycodone/Acetaminophen (Percocet 5/325 Mg Tab) 1 tab PO Q6 PRN PRN Reason: PAIN 4-10 Stop: 01/25/17 21:24 Last Admin: 01/22/17 22:13 Dose: 1 tab - Labs Labs: 01/19/17 06:30 01/19/17 06:30 - Extremities Exam Additional comments: RLE focused physical exam: Vasc: DP and PT 2/4; Temperature gradient WNL, SPECIAL EDUCATION PARAEDUCATOR <3 seconds to digits. No edema noted Ortho: Mild tenderness noted to palpation surrounding wound Neuro: gross sensation intact Derm: posterolateral right ankle wound measures approximately 5.4 cm x 3.5 cm x .2 cm with granular base, no purulence, no malodor, no drainage, no tunneling, no undermining, no ascending cellulitis, no probe to bone; periwound is slightly maceration secondary to wound vac; wound is improving - Neurological Exam Neurological Exam: Alert, Awake, Normal Gait - Psychiatric Exam Psychiatric exam: Normal Affect, Normal Mood Assessment and Plan - Assessment and Plan (Free Text) Assessment: 71 y/o diabetic male seen at bedside 13 days s/p right ankle wound debridement Plan: Patient seen and evaluated at bedside Discussed plan in details with attending Dr. Bryant Charts, vitals, labs reviewed = afebrile Wound Vac changed today: betadine used to dry periwound F/U discharge recommendations Patient is stable from podiatry standpoint Podiatry will continue to follow while in house
--- NOTE | 2017-01-25 14:06 | CP.PCM.PN ---
Subjective - Date & Time of Evaluation Date of Evaluation: 01/25/17 Time of Evaluation: 13:50 - Subjective Subjective: Hospitalist Progress Note (Patient was seen and examined at 1:50 PM 01/25/17 in 715-1) 71 year old male who is S/P Debridement of Right Heal/Ankle Ulcer on 01/12/17 and wound vac placement and was then transferred to [facility] for PT/OT and continued antibiotic treatment. Currently upon FULL ROS: NO chest pain, NO palpitations, NO SOB/Cough/Wheezing, NO Abdominal Pain, NO n/v /d/c, NO burning/pain with urinations, NO lightheadedness/dizziness, NO headaches, NO new changes in vision/eye pain, NO new changes in hearing/ear pain , NO paresthesias, (+) Some Right Heal Pain (tightness/soreness) with Physical Therapy otherwise the pain in manageable Exam: HEENT: NCA, EOMI, PERRLA, NO lymphadenopathy, NO thyromegaly, NO pharyngeal erythema/exudate, Nasal Turbinates are moist/nonerythematous/nonedematous, Oral mucosa is moist Cardio: NS1 and NS2, NO M/R/G Resp: CTA B/L, NO R/R/W GI: BSx4, Soft, NT, ND, NO HSM, NO guarding/rebound tenderness Neuro: CN II through XII Extremities: Pulses are strong and equal, Capillary Refill is 2 seconds, NO edema, Right Heal Wound could not be evaluated as wound vac and bandages in place Assessment and Plan: 1). S/P Debridement of Right Heal/Ankle Ulcer on 01/12/17 and wound vac placement Podiatry would like for patient to go home on Wound Vac. Tubular Splitting Machine Tender Harriet Aburto is working on obtaining this for patient and once it has been obtained patient may be discharged. I spoke with ID Dr. Bai (concerning Hx of Right Ankle/Heal wound culture 01/12 which showed Stenotrophomonas Maltophilia and [place] Parpsilosis and Staph aureus on 01/07/17) and patient will need 7 more day of Clindamycin 300 mg PO Q8H and Ciprofloxacin 500 mg PO 2x/day starting on 01/26/17 after today's last dose of Zosyn. Patient will need to follow up with Podiatry Dr. Lisa on 01/28/17 after discharge 2). HTN Metroprolol increased to 50 mg PO Q12H as blood pressure not under control Amlodipine 10 mg PO 1x/day HCTZ 25 mg PO 1x/day Losartan 100 mg PO 1x/day 3). Prophylactic Measures Tylenol 650 mg PO Q6H PRN Mild Pain Colace 100 mg PO 2x/day PRN Constipation Mag Hydroxide 30 ml PO HS PRN if no bowel movement in 3 days Percocet 5/325 mg PO Q6H PRN Moderate to Severe Pain Objective - Vital Signs/Intake and Output Vital Signs (last 24 hours): Temp Pulse Resp BP Pulse Ox 97.9 F 81 20 152/90 H 100 01/25/17 07:58 01/25/17 08:47 01/25/17 07:58 01/25/17 08:47 01/25/17 07:58 - Medications Medications: Current Medications Acetaminophen (Tylenol 325mg Tab) 650 mg PO Q6 PRN PRN Reason: Pain, Mild (1-3) Last Admin: 01/24/17 22:52 Dose: 650 mg Amlodipine Besylate (Norvasc) 10 mg PO DAILY [facility] Last Admin: 01/25/17 08:47 Dose: 10 mg Docusate Sodium (Colace) 100 mg PO BID PRN PRN Reason: Constipation Last Admin: 01/21/17 08:04 Dose: 100 mg Hydrochlorothiazide (Hydrodiuril) 25 mg PO DAILY [facility] Last Admin: 01/25/17 08:46 Dose: 25 mg Piperacillin Sod/Tazobactam Sod (Zosyn 3.375 Gm Iv Premix) 3.375 gm in 50 mls @ 50 mls/hr IVPB Q8@0600,1400,2200 [facility] Last Admin: 01/25/17 13:47 Dose: 50 mls/hr Losartan Potassium (Cozaar) 100 mg PO DAILY [facility] Last Admin: 01/25/17 08:45 Dose: 100 mg Magnesium Hydroxide (Milk Of Magnesia) 30 ml PO HS PRN PRN Reason: If No Bowel Movement in 3 Days Metoprolol Tartrate (Lopressor) 25 mg PO Q12 [facility] Last Admin: 01/25/17 08:47 Dose: 25 mg Oxycodone/Acetaminophen (Percocet 5/325 Mg Tab) 1 tab PO Q6 PRN PRN Reason: PAIN 4-10 Stop: 01/25/17 21:24 Last Admin: 01/22/17 22:13 Dose: 1 tab - Labs Labs: 01/19/17 06:30 01/19/17 06:30
[2017-01-26] MEDS: Piperacill/Tazo 3.375gm in Dex 3.375 GM/50 ML BAG IVPB SCH (05:47)
[2017-01-26 07:10] LABS: BASO % 0.6 % (0.0-2.0); EOS # 0.3 K/uL (0.0-0.7); EOS % 3.9 % (0.0-4.0); HEMOGLOBIN 13.9 g/dL (12.0-18.0); LYMPH # 1.4 K/uL (1.0-4.3); LYMPH % 21.1 % (20.0-40.0); MEAN CELL VOLUME 82.9 fl (80.0-94.0); MEAN CORPUSCULAR HEMOGLOBIN 27.1 pg (27.0-31.0); MEAN CORPUSCULAR HGB CONC 32.7 g/dL (33.0-37.0); MEAN PLATELET VOLUME 7.8 fl (7.2-11.7); MONO # 1.1 K/uL (0.0-0.8); MONO % 15.8 % (0.0-10.0); NEUT % 58.6 % (50.0-75.0); RBC 5.13 Mil/uL (4.40-5.90); RED CELL DISTRIBUTION WIDTH 13.8 % (11.5-14.5); WHITE BLOOD COUNT 6.8 K/uL (4.8-10.8)
[2017-01-26 07:23] LABS: ALBUMIN 4.1 g/dL (3.5-5.0); CALCIUM 9.9 mg/dL (8.4-10.2)
--- NOTE | 2017-01-26 08:02 | CP.PCM.PN ---
Subjective - Date & Time of Evaluation Date of Evaluation: 01/26/17 Time of Evaluation: 07:50 - Subjective Subjective: Patient is a 71 year old male who was seen and evaluated at bedside for 14 days s/p right lateral ankle wound debridement. Patient is seen resting comfortably in bed, AAO x3, and in NAD. Patient reports the same throbbing pain. He denies n /v/sob/cp/f or chills. Patient's wound vac and dressing was c/d/i and on when seen. Reports no other complaints at this time. Objective - Vital Signs/Intake and Output Vital Signs (last 24 hours): Temp Pulse Resp BP Pulse Ox 98.2 F 96 H 20 136/97 H 96 01/25/17 20:21 01/25/17 21:08 01/25/17 20:21 01/25/17 21:08 01/25/17 20:21 - Medications Medications: Current Medications Acetaminophen (Tylenol 325mg Tab) 650 mg PO Q6 PRN PRN Reason: Pain, Mild (1-3) Last Admin: 01/26/17 03:42 Dose: 650 mg Amlodipine Besylate (Norvasc) 10 mg PO DAILY [facility] Last Admin: 01/25/17 08:47 Dose: 10 mg Ciprofloxacin (Cipro) 500 mg PO Q12 [facility] Stop: 01/31/17 21:00 Clindamycin HCl (Cleocin) 300 mg PO Q8 [facility] Stop: 01/31/17 17:00 Last Admin: 01/26/17 00:58 Dose: 300 mg Docusate Sodium (Colace) 100 mg PO BID PRN PRN Reason: Constipation Last Admin: 01/21/17 08:04 Dose: 100 mg Hydrochlorothiazide (Hydrodiuril) 25 mg PO DAILY [facility] Last Admin: 01/25/17 08:46 Dose: 25 mg Piperacillin Sod/Tazobactam Sod (Zosyn 3.375 Gm Iv Premix) 3.375 gm in 50 mls @ 50 mls/hr IVPB Q8@0600,1400,2200 [facility] Last Admin: 01/26/17 05:47 Dose: 50 mls/hr Losartan Potassium (Cozaar) 100 mg PO DAILY [facility] Last Admin: 01/25/17 08:45 Dose: 100 mg Magnesium Hydroxide (Milk Of Magnesia) 30 ml PO HS PRN PRN Reason: If No Bowel Movement in 3 Days Metoprolol Tartrate (Lopressor) 50 mg PO Q12 [facility] Last Admin: 01/25/17 21:08 Dose: 50 mg - Labs Labs: 01/26/17 06:30 01/26/17 06:30 - Constitutional Appears: Well, Non-toxic, No Acute Distress - Extremities Exam Additional comments: RLE focused physical exam: Vasc: Temperature gradient WNL, 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 No edema noted Ortho: Mild tenderness noted to RLE Derm: posterolateral right ankle wound site with wound vac intact, dressing d/c/ i with no strikethrough, leak check indicates no leaks at this time to vac. Dressing intact to RLE. 10 cc of drainage obtain in wound vac canister since 01/25 Neuro: Gross sensation intact - Neurological Exam Neurological Exam: Alert, Awake, Oriented x3 - Psychiatric Exam Psychiatric exam: Normal Affect, Normal Mood Assessment and Plan - Assessment and Plan (Free Text) Assessment: 71 y/o diabetic male seen at bedside 13 days s/p right ankle wound debridement Plan: Patient seen and evaluated at bedside Discussed plan in details with attending Dr. Bryant Charts, vitals, labs reviewed = afebrile Patient unable to get approval for wound vac. Will change dressing to silvasorb, dsd, abd, and ARCHIE before discharge and follow up with mine inspector federal Dr. Lisa for continue treatment Ordered Silvasorb. Patient is stable from podiatry standpoint Podiatry will continue to follow while in house
[2017-01-26 08:22] VITALS: BP 157/99; PULSE 81; TEMP 97.7; O2SAT 100
[2017-01-26] MEDS: SILVASORB ANTIMICROBIAL WOUND GEL TP SCH ×3 (08:56→10:11)
--- NOTE | 2017-01-26 15:38 | CP.PCM.DIS ---
Provider - Provider Date of Admission: 01/18/17 17:30 Attending physician: Mary Rapp DO Consults: Podiatry Dr Bai Time Spent in preparation of Discharge (in minutes): 35 Diagnosis - Discharge Diagnosis (1) Non-healing ulcer of ankle Status: Chronic Comment: post debridement. completed course of IV antibiotics (2) HTN (hypertension) Status: Acute Comment: BP stable. continue Norvasc, Bisoprolol/HCTZ and Losartan at home Hospital Course - Lab Results Lab Results: Most Recent Lab Values WBC 6.8 K/uL (4.8-10.8) 01/26/17 06:30 RBC 5.13 Mil/uL (4.40-5.90) 01/26/17 06:30 Hgb 13.9 g/dL (12.0-18.0) 01/26/17 06:30 Hct 42.5 % (35.0-51.0) 01/26/17 06:30 MCV 82.9 fl (80.0-94.0) 01/26/17 06:30 MCH 27.1 pg (27.0-31.0) 01/26/17 06:30 MCHC 32.7 g/dL (33.0-37.0) L 01/26/17 06:30 RDW 13.8 % (11.5-14.5) 01/26/17 06:30 Plt Count 305 K/uL (130-400) 01/26/17 06:30 MPV 7.8 fl (7.2-11.7) 01/26/17 06:30 Neut % (Auto) 58.6 % (50.0-75.0) 01/26/17 06:30 Lymph % (Auto) 21.1 % (20.0-40.0) 01/26/17 06:30 [place] % (Auto) 15.8 % (0.0-10.0) H 01/26/17 06:30 Eos % (Auto) 3.9 % (0.0-4.0) 01/26/17 06:30 Baso % (Auto) 0.6 % (0.0-2.0) 01/26/17 06:30 Neut # 4.0 K/uL (1.8-7.0) 01/26/17 06:30 Lymph # 1.4 K/uL (1.0-4.3) 01/26/17 06:30 [place] # 1.1 K/uL (0.0-0.8) H 01/26/17 06:30 Eos # 0.3 K/uL (0.0-0.7) 01/26/17 06:30 Baso # 0.0 K/uL (0.0-0.2) 01/26/17 06:30 Sodium 138 mmol/l (132-148) 01/26/17 06:30 Potassium 4.1 MMOL/L (3.6-5.0) 01/26/17 06:30 Chloride 99 mmol/L (98-107) 01/26/17 06:30 Carbon Dioxide 27 mmol/L (22-30) 01/26/17 06:30 Anion Gap 16 (10-20) 01/26/17 06:30 BUN 20 mg/dl (9-20) 01/26/17 06:30 Creatinine 1.6 mg/dL (0.8-1.5) H 01/26/17 06:30 Est GFR ( Amer) 52 01/26/17 06:30 Est GFR (Non-Af Amer) 43 01/26/17 06:30 Random Glucose 112 mg/dL (75-110) H 01/26/17 06:30 Calcium 9.9 mg/dL (8.4-10.2) 01/26/17 06:30 Total Bilirubin 0.6 mg/dl (0.2-1.3) 01/26/17 06:30 AST 35 U/L (17-59) 01/26/17 06:30 ALT 43 U/L (21-72) 01/26/17 06:30 Alkaline Phosphatase 50 U/L (38-126) 01/26/17 06:30 Total Protein 8.2 G/DL (6.3-8.2) 01/26/17 06:30 Albumin 4.1 g/dL (3.5-5.0) 01/26/17 06:30 Globulin 4.1 gm/dL (2.2-3.9) H 01/26/17 06:30 Albumin/Globulin Ratio 1.0 (1.0-2.1) 01/26/17 06:30 - Hospital Course Hospital Course: 72 yo male with history of HTN sent to [facility] from [facility] post right ankle ulcer debridement for continuation of IV antibiotics (Zosyn and Cipro) Discharge Exam - Head Exam Head Exam: NORMOCEPHALIC - Eye Exam Eye Exam: absent: Scleral icterus - ENT Exam ENT Exam: Mucous Membranes Moist - Respiratory Exam Respiratory Exam: absent: Wheezes, Respiratory Distress - Cardiovascular Exam Cardiovascular Exam: REGULAR RHYTHM, +S1, +S2 - GI/Abdominal Exam GI & Abdominal Exam: Soft. absent: Tenderness - Rectal Exam Rectal Exam: Deferred - Neurological Exam Neurological exam: Alert, Oriented x3 - Psychiatric Exam Psychiatric exam: Normal Affect - Skin Skin Exam: Dry, Intact Discharge Plan - Follow Up Plan Condition: GOOD Disposition: HOME/ ROUTINE Instructions: Chronic Wound Care (DC), Debridement (DC)
--- NOTE | 2017-01-27 15:00 | PQF DEBRID ---
Dr. Park progress note dated 01/21 documented that pt's wound was mechanically debrided using 4x4. Was debridement excisional or nonexcisional? This form is a permanent part of the medical record Clarification of your documentation is requested to better reflect the severity of illness and intensity of treatment of your patient. Indicators present [x] Documentation of wound care / debridement [x] Technique: Mechanical debridement [x] Instrument used: Sterile 4x4 [x] Nature of Tissue Removed:Nonexcisional [x] Appearance of Wound: Granular base [x] Size of Wound: 5.5cm x 3.6cm [x] Depth of Debridement: Superficial [] Other: [] Location in the medical record that reflects the above clinical findings: [] Other Treatment Provided: [] PHYSICIAN'S RESPONSE Based on your medical judgment, can you further clarify the precise NATURE, DEPTH, EXTENT and / or METHODS of wound debridement utilized in this case: [] EXCISIONAL debridement use of a scalpel / blade to cut away tissue Depth (subcutaneous, fascia, muscle, soft tissue and bone) [] Size of Wound [x] NON-EXCISIONAL debridement chemical, scrubbing, trimming with a scissor/ versajet [] Other, please indicate: [] [] If unable to determine, please check the box, sign and date. In responding to this query, please exercise your independent professional judgment. The fact that a question is asked does not imply that any particular answer is desired or expected. Thank you for your clarification on this documentation. If you have any questions please call:[ ] * Thank you, [ ]Bernice Mcguire furniture salesperson CLEMENTE
== END 2017-01-26 15:48 | disposition home or self-care (01) | DRG 594 ==
LOC: H.TCU 17:30
PROVIDERS: ADMIT Student in an Organized Health Care Education/Training Program; ATTEND Student in an Organized Health Care Education/Training Program
PROC: F08Z4ZZ Home Management Treatment (ICD-10-PCS; principal; 2017-01-18)
PROC: F07Z9ZZ Gait Training/Functional Ambulation Treatment (ICD-10-PCS; 2017-01-18)
PROC: F07L6ZZ Therapeutic Exercise Treatment of Musculoskeletal System - Lower Back / Lower Extremity (ICD-10-PCS; 2017-01-18)
PROC: F07Z9FZ Gait Training/Functional Ambulation Treatment using Assistive, Adaptive, Supportive or Protective Equipment (ICD-10-PCS; 2017-01-18)
PROC: 0HDMXZZ Extraction of Right Foot Skin, External Approach (ICD-10-PCS; 2017-01-21)
DX: L97.319 Non-pressure chronic ulcer of right ankle with unspecified severity (principal); B95.61 Methicillin susceptible Staphylococcus aureus infection as the cause of diseases classified elsewhere; I10 Essential (primary) hypertension; Z87.891 Personal history of nicotine dependence